=== PATIENT | female | born 1985 | race Caucasian/White ===

== ENCOUNTER 2022-03-07 08:05 | Emergency (ER) | payer BC, MEDICAID, OTHER ==
[~2022-03-07] VITALS: Ht 170.2 cm; Wt 87.1 kg
[2022-03-07 08:34] VITALS: BP 153/96
--- NOTE | 2022-03-07 08:40 | NUR ---
PT LAYING IN BED WIH C/O COUGH, SAHIL LUNGS CLEAR, RESP EVEN AND UNLABORED. NOT COUGH NOTED. PT IN ROOM AWAITING TO BE SEEN BY
[2022-03-07] MEDS ORDERED: BENZ200C4 PO (09:07)
[2022-03-07 09:22] VITALS: BP 139/87
--- NOTE | 2022-03-07 09:23 | NUR ---
Patient discharged with v/s stable. Written and verbal after care instructions given and explained. Patient alert, oriented and verbalized understanding of instructions. Ambulatory with steady gait. All questions addressed prior to discharge. ID band removed. Patient advised to follow up with PMD. Patient educated on indication of medication including possible reaction and side effects. Opportunity to ask questions provided and answered.
== END 2022-03-07 09:23 | disposition home or self-care (01) ==
LOC: MED 08:05
DX: B34.9 Viral infection, unspecified (principal); Z20.822 Contact with and (suspected) exposure to COVID-19; J45.909 Unspecified asthma, uncomplicated
CPT/HCPCS: 99283